=== PATIENT | female | born 1995 | race Caucasian/White ===

== ENCOUNTER 2016-05-27 20:05 | Emergency (ER) | payer OTHER ==
--- NOTE | 2016-05-27 20:10 | PDOC ---
History of Present Illness - General History Source: Patient Exam Limitations: No Limitations - History of Present Illness Initial Comments: 05/27/16 20:16 The patient is a 21 year old female, with no significant past medical history, who presents today with a left ankle injury. The patient states that she was rock climbing when she bent her left foot the wrong way. She reports pain and some swelling to left ankle. Denies falling, head trauma, any other trauma. Denies lightheadedness, dizziness. Allergies: none reported ROS General: No fevers or chills, no weakness, no weight loss HEENT: No change in vision. No sore throat,. No ear pain CardioVascular: No chest pain or shortness of breath Respiratory:No cough, or wheezing. Gastrointestinal: no nausea, vomiting, diarrhea or constipation, No rectal bleeding Genitourinary: No dysuria, hematuria, or frequency Musculoskeletal: +left ankle pain. No joint or muscle pain or swelling Neurologic: No headache, vertigo, dizziness or loss of consciousness Psychiatric: nor depression Skin: No rashes or easy bruising Endocrine: no increased thirst or abnormal weight change Allergic: no skin or latex allergy All other systems reviewed and normal PE GENERAL: The patient is awake, alert, and fully oriented, in no acute distress. HEAD: Normal with no signs of trauma. EYES: Pupils equal, round and reactive to light, extraocular movements intact, sclera anicteric, conjunctiva clear. EXTREMITIES: Left ankle: +tenderness and swelling over thelateral malleolus. No tenderness on palpation of the bones of the foot, specifically over the metatarsal. Neurovascular intact. NEUROLOGICAL: Normal speech, normal gait. PSYCH: Normal mood, normal affect. SKIN: Warm, Dry, normal turgor, no rashes or lesions noted. <Maria Ramirez - Last Filed: 05/27/16 20:25> - General History Source: Patient Exam Limitations: No Limitations - History of Present Illness Initial Comments: 05/27/16 21:08 A portion of this note was documented by scribe services under my direction. I have reviewed the details of the note, within reason, and agree with the documentation. The case summary and management plan written by me. X-ray left ankle Questionable small chip fracture of talus Procedure splint application OCL Posterior ankle splint applied by Chris neurovascular exam post splint application was normal Assessment and plan: This is a 21-year-old female who injured her left ankle while climbing on a climbing wall. Patient shows what I think is a questionable small chip fracture of the talus Patient was put in a posterior ankle splint and given crutches and made no weight bearing until she sees an orthopedist Patient given referral to an orthopedist Dr. Belle Patient discharged home <Cornelius Vanegas I - Last Filed: 05/27/16 21:11> - General Chief Complaint: Injury Stated Complaint: INJURY TO LEFT ANKLE Time Seen by Provider: 05/27/16 20:08 Past History <Maria Ramirez - Last Filed: 05/27/16 20:25> <Cornelius Vanegas I - Last Filed: 05/27/16 21:11> - Past Medical History Allergies/Adverse Reactions: Allergies Allergy/AdvReac Type Severity Reaction Status Date / Time No Known Allergies Allergy Verified 05/27/16 20:07 Home Medications: Ambulatory Orders NK [No Known Home Medication] 05/27/16 *Physical Exam - Vital Signs Last Vital Signs Temp Pulse Resp BP Pulse Ox 97.6 F 65 16 104/72 98 05/27/16 20:08 05/27/16 20:08 05/27/16 20:08 05/27/16 20:08 05/27/16 20:08 <Maria Ramirez - Last Filed: 05/27/16 20:25> *DC/Admit/Observation/Transfer - Attestations Scribe Attestion: 05/27/16 20:25 Documentation prepared by MELQUIADES Farrell, acting as medical driver for Cornelius Vanegas MD. <Maria Ramirez - Last Filed: 05/27/16 20:25> - Discharge Dispostion Admit: No <Cornelius Vanegas I - Last Filed: 05/27/16 21:11> Diagnosis at time of Disposition: Fracture of left ankle Qualifiers: Encounter type: initial encounter Fracture type: closed Qualified Code(s): S82.892A - Other fracture of left lower leg, initial encounter for closed fracture - Discharge Dispostion Disposition: HOME Condition at time of disposition: Stable - Patient Instructions Additional Instructions: Tylenol or Motrin as needed for pain. Leave the splint on and use crutches for walking until you see an orthopedist. If he needed an orthopedist to follow-up with call Dr. Belle at [phone] for an appointment. Return to the emergency department immediately with ANY new, persistent or worsening symptoms. Continue any medications as previously prescribed by your physician. You should follow up with your primary doctor as soon as possible regarding today's emergency department visit. . Please make sure your doctor reviews the results of your emergency evaluation. Thank you for coming to the Emergency Department today for your care. It was a pleasure to see you today. Please note that your evaluation is INCOMPLETE until you follow-up with your doctor.
[2016-05-27 20:12] VITALS: BP 104/72; PULSE 65; TEMP 97.6; BMI 22.6
== END 2016-05-27 21:19 | disposition home or self-care (01) ==
LOC: FER 20:05
PROC: 2W3TX1Z Immobilization of Left Foot using Splint (ICD-10-PCS; principal; 2016-05-27)
DX: S82.892A Other fracture of left lower leg, initial encounter for closed fracture (principal); X58.XXXA Exposure to other specified factors, initial encounter; Y93.31 Activity, mountain climbing, rock climbing and wall climbing; Y92.9 Unspecified place or not applicable
CPT/HCPCS: 73610-TC-LT; 84703; 99281-25

== ENCOUNTER 2019-04-19 14:50 | Emergency (ER) | payer OTHER ==
[2019-04-19 15:08] VITALS: BP 119/56; PULSE 86; TEMP 97.5; BMI 23.2
--- NOTE | 2019-04-19 16:12 | PDOC ---
Documentation entered by Tasha Garrison SCRIBE, acting as scribe for Suresh Torrez MD. Suresh Torrez MD: This documentation has been prepared by the indigoibeBladimir Maria, SCRIBE, under my direction and personally reviewed by me in its entirety. I confirm that the documentation accurately reflects all work, treatment, procedures, and medical decision making performed by me. History of Present Illness - General Chief Complaint: Injury Stated Complaint: RT ANKLE INJURY Time Seen by Provider: 04/19/19 14:59 - History of Present Illness Initial Comments: 04/19/19 15:27 Patient is a 23 year old female with no significant past medical history who presents to the emergency department with a right ankle injury. Patient states she inverted her ankle at 1am last night. Patient states she begin icing and took pain medication without any relief of pain. As per patient she noticed the swelling and redness began to worsen prompting her to the ER. Patient denies falling or head trauma. Allergies: NKA Past surgical history: None reported. Past History - Past Medical History Allergies/Adverse Reactions: Allergies Allergy/AdvReac Type Severity Reaction Status Date / Time No Known Allergies Allergy Verified 04/19/19 14:55 Home Medications: Ambulatory Orders Naproxen [Naprosyn -] 375 mg PO BID PRN #14 tablet 04/19/19 COPD: No Other medical history: eczema - Psycho Social/Smoking Cessation Hx Smoking History: Never smoked Have you smoked in the past 12 months: No Information on smoking cessation initiated: No Hx Alcohol Use: No Drug/Substance Use Hx: No Substance Use Type: None Review of Systems - Review of Systems Comments:: 04/19/19 15:27 CONSTITUTIONAL: Absent: Fever, Chills, Diaphoresis, Generalized Weakness, Malaise, Loss of Appetite HEENT: Absent: Rhinorrhea, Nasal Congestion, Throat Pain, Throat Swelling, Difficulty Swallowing, Mouth Swelling, Ear Pain, Eye Pain, Visual Changes CARDIOVASCULAR: Absent: Chest Pain, Syncope, Palpitations, Irregular Heart Rate, Lightheadedness , Peripheral Edema RESPIRATORY: Absent: Cough, Shortness of Breath, SOB with Exertion, Orthopnea, Wheezing, Stridor, Hemoptysis GASTROINTESTINAL: Absent: Abdominal pain, Abdominal Distension, Nausea, Vomiting, Diarrhea, Constipation, Melena, Hematochezia GENITOURINARY: Absent: Dysuria, Frequency, Urgency, Hesitancy, Flank Pain, Genital Pain MUSCULOSKELETAL:+right ankle injury Absent: Myalgia, Arthralgia, Joint Swelling, Back pain, Neck Pain SKIN: Absent: Rash, Itching, Pallor HEMEATOLOGIC/IMMUNOLOGIC: Absent: Easy Bleeding, Easy Bruising, Lymphadenopathy, Frequent infections ENDOCRINE: Absent: Unexplained Weight Gain, Unexplained Weight Loss, Heat Intolerance, Cold Intolerance NEUROLOGIC: Absent: Headache, Focal Weakness, Paresthesias, Vertigo, Lightheadedness, Unsteady Gait, Seizure, Mental Status Changes, Incontinence PSYCHIATRIC: Absent: Anxiety, Depression *Physical Exam - Vital Signs Last Vital Signs Temp Pulse Resp BP Pulse Ox 97.5 F L 86 18 119/56 L 100 04/19/19 14:50 04/19/19 14:50 04/19/19 14:50 04/19/19 14:50 04/19/19 14:50 - Physical Exam 04/19/19 16:06 GENERAL: The patient is awake, alert, and fully oriented, in no acute distress. She is ambulating with crutches. HEAD: Normal with no signs of trauma. EYES: Pupils equal, round and reactive to light, extraocular movements intact, sclera anicteric, conjunctiva clear. EXTREMITIES: The right ankle has no tenderness above the level of the ankle. There is significant swelling over the lateral malleolus. There is tenderness over the anterior aspect of the lateral malleolus distally. There is no medial malleolar tenderness. There is no tenderness over the proximal fifth metatarsal. Skin is intact. Neurovascular examination is intact. Sensation in the distal foot is normal. Pulses to the dorsalis pedis are normal. Capillary refill is normal. NEUROLOGICAL: Normal speech, walking with crutches. PSYCH: Normal mood, normal affect. SKIN: Warm, Dry, normal turgor, no rashes or lesions noted. ED Treatment Course - RADIOLOGY Radiology Studies Ordered: Category Date Time Status ANKLE-RIGHT [RAD] Stat Radiology 04/19/19 15:19 Taken Medical Decision Making - Medical Decision Making 04/19/19 16:07 23-year-old female is status post twisting her ankle last night at 1 AM. She comes in on crutches due to inability to bear weight. On examination there is swelling and tenderness over the anterior aspect of the lateral malleolus. Neurovascular examination and skin are all intact. 3 views of the right ankle demonstrate no fracture or dislocation. This is based upon my preliminary review with final radiology reading pending at the time of discharge. Radiology follow-up procedure activated. Impression: Right ankle sprain Plan: Ruben wrap Crutches Ice packs and elevation Naprosyn as needed for pain Orthopedic follow-up Discharge - Discharge Information Problems reviewed: Yes Clinical Impression/Diagnosis: Right ankle sprain Qualifiers: Encounter type: initial encounter Involved ligament of ankle: anterior talofibular ligament Qualified Code(s): S93.491A - Sprain of other ligament of right ankle, initial encounter Condition: Stable Disposition: HOME - Admission No - Additional Discharge Information Prescriptions: Naproxen [Naprosyn -] 375 mg PO BID PRN #14 tablet PRN Reason: Pain - Follow up/Referral - Patient Discharge Instructions Patient Printed Discharge Instructions: DI for Ankle Sprain Additional Instructions: Today you were evaluated for a right ankle sprain. The x-ray shows no fracture or dislocation. The diagnosis is a sprain of the right ankle. Use an Ruben wrap when up for support, remove it at night. Elevate the ankle to reduce swelling and pain. Apply ice packs for 20 to 30 minutes every few hours over the next 2 days. Use crutches for walking as needed. You may bear weight once the pain begins to improve. Be careful to advance your activity slowly or you may reinjure the ankle. Follow-up with orthopedics if the symptoms are not improving after 1 week. Return to the emergency department for any severe or progressive symptoms. - Post Discharge Activity
== END 2019-04-19 16:18 | disposition home or self-care (01) ==
LOC: FER 14:50
DX: S93.491A Sprain of other ligament of right ankle, initial encounter (principal); X58.XXXA Exposure to other specified factors, initial encounter; Y93.89 Activity, other specified; Y92.89 Other specified places as the place of occurrence of the external cause
CPT/HCPCS: 73610-TC-RT-FY; 99283-25

== ENCOUNTER 2020-02-08 11:45 | Emergency (ER) | payer OTHER ==
[2020-02-08 12:22] VITALS: BP 108/67; PULSE 67; TEMP 99.5; BMI 21.7
--- OUTSIDE RECORDS SUMMARY | 2020-02-08 12:49 | XMS ---
:1995 Author Organization [facility] Care Team Providers Name Role Phone [id number] Unavailable Unavailable BREANNE Unavailable Unavailable MD TANIYA Unavailable Unavailable MD Samson Unavailable Unavailable MD Penny Unavailable Unavailable ELIZABETH Unavailable Unavailable JABARI MCKENZIE Unavailable Unavailable Ruel Brumfield MD Unavailable Unavailable Ruel Brumfield MD Unavailable Unavailable Ruel Brumfield MD Unavailable Unavailable Ruel Brumfield MD Unavailable Unavailable Tej, Unavailable Unavailable Re-disclosure Warning The records that you are about to access may contain information from federally- assisted alcohol or drug abuse programs. If such information is present, then the following federally mandated warning applies: This information has been disclosed to you from records protected by federal confidentiality rules (42 CFR part 2). The federal rules prohibit you from making any further disclosure of this information unless further disclosure is expressly permitted by the written consent of the person to whom it pertains or as otherwise permitted by 42 CFR part 2. A general authorization for the release of medical or other information is NOT sufficient for this purpose. The Federal rules restrict any use of the information to criminally investigate or prosecute any alcohol or drug abuse patient.The records that you are about to access may contain highly sensitive health information, the redisclosure of which is protected by Article 27-F of the [facility] Public Health law. If you continue you may haveaccess to information: Regarding HIV / AIDS; Provided by facilities licensed or operated by the [facility] Office of Mental Health; or Provided by the [facility] Office for People With Developmental Disabilities. If such information is present, then the following [facility] mandated warning applies: This information has been disclosed to you from confidential records which are protected by state law. State law prohibits you from making any further disclosure of this information without the specific written consent of the person to whom it pertains, or as otherwise permitted by law. Any unauthorized further disclosure in violation of state law may result in a fine or longterm sentence or both. A general authorization for the release of medical or other information is NOT sufficient authorization for further disclosure. 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 Emergency Attender: Usha 11/13/2019 04:42:00 VAG BLEED A UTO [place] Tej DO EDT - 11/13/2019 [facility] 06:59:00 AM EDT VAG BLEED AUTO Patient discharged. Outpatient Attender: BREANNEAdmitter: 08/27/2019 04:30:00 Z03. 818 [facility] Z03.818 Outpatient Attender: MAGALY 08/14/2019 02:26:00 Z03.818 [facility] JABARI SalasAdmitter: [facility] JABARI MCKENZIE [employer] Z03.818 Outpatient Attender: Nayana 04/02/2019 11:11:00 [place]ICIA PAREDES [place] [facility] PPD READING Outpatient Attender: Nayana 03/31/2019 10:11:00 AM F/U [facility] Samson SECALERA F/U 01/06/2019 01:43:00 PM [facility] EDT P Attender: Nayana 01/05/2019 11:34:00 AM [facility] Samson TAVAREZ EDT Outpatient Attender: Nayana 01/05/2019 10:16:00 AM [facility] Samson TAVAREZ EDT NEW Attender: [id number] 2018 09:16:00 [facility] [id number] EDT Hospital P Attender: Vijay Brum[facility] MD 10[facility]11[facility]2018 [facility] Attender: SHRUTHI MAYS 09/14/2018 09:16:00 [facility] SAQIAdmitter: OWEN JOHNSON EDT Hospital Outpatient Attender: Vijay Brumfield 09/10/2018 12:14:00 E JACKIE Ospina MD EDT - 10/10/2018 [facility] 12:01:00 AM EDT EVAL Patient discharged. Outpatient Attender: Vijay 08/11/2018 10:39:00 AM [facility] Octaviano TAVAREZ EDT - 09/09/2018 12:01:00 AM EDT EVAL Outpatient Attender: Vijay 07/11/2018 03:14:00 PM [facility] Octaviano TAVAREZ EST - 08/10/2018 12:01:00 AM EDT EVAL Outpatient Attender: Vijay 06/13/2018 10:20:00 AM [facility] Octav[facility] TAVAREZ EST - 07/10/2018 12:01:00 AM EST EVAL Medications Medication Brand Start Product Dose Route Administrative Pharmacy St at Indications Reaction Description Data Name Date Form Instructions Instructions Source(s) 24 HR Addera ORAL complet Adderall XR [facility] Amphetamine ll XR 2019 Capsu ed - 25 MG ORA [facility] aspartate - 25 12:00: le Capsule, Hosp ital 6.25 MG / MG 00 AM Extended Amphetamine ORAL EDT Release Sulfate Capsul 6.25 MG / e, Dextroamphe Extend tamine ed saccharate Releas 6.25 MG / e Dextroamphe tamine Sulfate 6.25 MG Extended Release Oral Capsule [Adderall] 24 HR Addera ORAL complet Adderall XR [facility] XR 2020 Capsu ed - 20 MG ORA [facility] aspartate 5 - 20 12:00: le Capsule, Ho spital MG / MG 00 AM Extended Amphetamine ORAL EDT Release Sulfate 5 Capsul MG / e, Dextroamphe Extend tamine ed saccharate Releas 5 MG / e Dextroamphe tamine Sulfate 5 MG Extended Release Oral Capsule [Adderall] 24 HR Addera ORAL complet Adderall XR [facility] XR 2020 Capsu ed - 20 MG ORA L [facility] aspartate 5 - 20 12:00: le Capsule, Ho spital MG / MG 00 AM Extended Amphetamine ORAL EDT Release Sulfate 5 Capsul MG / e, Dextroamphe Extend tamine ed saccharate Releas 5 MG / e Dextroamphe tamine Sulfate 5 MG Extended Release Oral Capsule [Adderall] 24 HR Addera ORAL complet Adderall XR [facility] XR 2020 Capsu ed - 20 MG ORA [facility] aspartate 5 - 20 12:00: le Capsule, Ho spital MG / MG 00 AM Extended Amphetamine ORAL EDT Release Sulfate 5 Capsul MG / e, Dextroamphe Extend tamine ed saccharate Releas 5 MG / e Dextroamphe tamine Sulfate 5 MG Extended Release Oral Capsule [Adderall] 24 HR Addera ORAL complet Adderall XR [facility] XR 2020 Capsu ed - 20 MG ORA L [facility] aspartate 5 - 20 12:00: le Capsule, Ho spital MG / MG 00 AM Extended Amphetamine ORAL EDT Release Sulfate 5 Capsul MG / e, Dextroamphe Extend tamine ed saccharate Releas 5 MG / e Dextroamphe tamine Sulfate 5 MG Extended Release Oral Capsule [Adderall] 24 HR Addera ORAL complet Adderall XR [facility]mp[facility] XR 2020 Capsu ed - 20 MG ORA L [facility] aspartate 5 - 20 12:00: le Capsule, Ho spital MG / MG 00 AM Extended Amphetamine ORAL EDT Release Sulfate 5 Capsul MG / e, Dextroamphe Extend tamine ed saccharate Releas 5 MG / e Dextroamphe tamine Sulfate 5 MG Extended Release Oral Capsule [Adderall] 24 HR Addera ORAL complet Adderall XR [facility]mp[facility] XR 2019 Capsu ed - 20 MG ORA [facility] aspartate 5 - 20 12:00: le Capsule, Ho spital MG / MG 00 AM Extended Amphetamine ORAL EST Release Sulfate 5 Capsul MG / e, Dextroamphe Extend tamine ed saccharate Releas 5 MG / e Dextroamphe tamine Sulfate 5 MG Extended Release Oral Capsule [Adderall] 24 HR Addera ORAL complet Adderall XR [facility] XR 2019 Capsu ed - 20 MG ORA L [facility] aspartate 5 - 20 12:00: le Capsule, Ho spital MG / MG 00 AM Extended Amphetamine ORAL EST Release Sulfate 5 Capsul MG / e, Dextroamphe Extend tamine ed saccharate Releas 5 MG / e Dextroamphe tamine Sulfate 5 MG Extended Release Oral Capsule [Adderall] 24 HR Addera ORAL complet Adderall XR [facility] XR 2019 Capsu ed - 20 MG ORA L [facility] aspartate 5 - 20 12:00: le Capsule, Ho spital MG / MG 00 AM Extended Amphetamine ORAL EST Release Sulfate 5 Capsul MG / e, Dextroamphe Extend tamine ed saccharate Releas 5 MG / e Dextroamphe tamine Sulfate 5 MG Extended Release Oral Capsule [Adderall] 24 HR Addera ORAL complet Adderall XR [facility]mp[facility] ll XR 2018 Capsu ed - 20 MG ORA L [facility] aspartate 5 - 20 12:00: le Capsule, Ho spital MG / MG 00 AM Extended Amphetamine ORAL EST Release Sulfate 5 Capsul MG / e, Dextroamphe Extend tamine ed saccharate Releas 5 MG / e Dextroamphe tamine Sulfate 5 MG Extended Release Oral Capsule [Adderall] 24 HR Addera ORAL complet Adderall XR [facility] XR 2018 Capsu ed - 20 MG ORA L [facility] aspartate 5 - 20 12:00: le Capsule, Ho spital MG / MG 00 AM Extended Amphetamine ORAL EST Release Sulfate 5 Capsul MG / e, Dextroamphe Extend tamine ed saccharate Releas 5 MG / e Dextroamphe tamine Sulfate 5 MG Extended Release Oral Capsule [Adderall] 24 HR Addera ORAL complet Adderall XR [facility] XR 2018 Capsu ed - 20 MG ORA L [facility] aspartate 5 - 20 12:00: le Capsule, Ho spital MG / MG 00 AM Extended Amphetamine ORAL EST Release Sulfate 5 Capsul MG / e, Dextroamphe Extend tamine ed saccharate Releas 5 MG / e Dextroamphe tamine Sulfate 5 MG Extended Release Oral Capsule [Adderall] 24 HR Addera ORAL complet Adderall XR [facility] XR 2018 Capsu ed - 20 MG ORA L [facility] aspartate 5 - 20 12:00: le Capsule, Ho spital MG / MG 00 AM Extended Amphetamine ORAL EDT Release Sulfate 5 Capsul MG / e, Dextroamphe Extend tamine ed saccharate Releas 5 MG / e Dextroamphe tamine Sulfate 5 MG Extended Release Oral Capsule [Adderall] 24 HR Addera ORAL complet Adderall XR [facility]mp[facility] ll XR 2018 Capsu ed - 20 MG ORA L [facility] aspartate 5 - 20 12:00: le Capsule, Ho spital MG / MG 00 AM Extended Amphetamine ORAL EDT Release Sulfate 5 Capsul MG / e, Dextroamphe Extend tamine ed saccharate Releas 5 MG / e Dextroamphe tamine Sulfate 5 MG Extended Release Oral Capsule [Adderall] 24 HR Addera ORAL complet Adderall XR [facility]mphetamine [facility] XR 2018 Capsu ed - 10 MG ORA L [facility] aspartate - 10 12:00: le Capsule, Hosp ital 2.5 MG / MG 00 AM Extended Amphetamine ORAL EDT Release Sulfate 2.5 Capsul MG / e, Dextroamphe Extend tamine ed saccharate Releas 2.5 MG / e Dextroamphe tamine Sulfate 2.5 MG Extended Release Oral Capsule [Adderall] Amphetamine Addera ORAL complet Addera ll - 5 [facility] aspartate ll - 5 2018 Table ed MG ORAL [facility] 1.25 MG / MG 12:00: t Tablet Hospit al Amphetamine ORAL 00 AM Sulfate Tablet EDT 1.25 MG / Dextroamphe tamine saccharate 1.25 MG / Dextroamphe tamine Sulfate 1.25 MG Oral Tablet [Adderall] 24 HR Concer ORAL complet Concerta - S aint Methylpheni - 2018 Table ed 18 MG ORAL [facility] date 18 MG 12:00: t Tablet, Hospital Hydrochlori ORAL 00 AM Extended de 18 MG Tablet EDT Release Extended , Release Extend Oral Tablet ed [Concerta] Releas e Methylpheni Ritali ORAL complet Ritali n - 10 2018 Table ed MG ORAL [facility] Hydrochlori MG 12:00: t Tablet Hosp ital de 10 MG ORAL 00 AM Oral Tablet Tablet EDT [Ritalin] Methylpheni Ritali ORAL complet Ritali n - 10 2018 Table ed MG ORAL [facility] Hydrochlori MG 12:00: t Tablet Hosp ital de 10 MG ORAL 00 AM Oral Tablet Tablet EDT [Ritalin] No known complet [facility] [place] [facility] No known complet [facility] [place] [facility] No known complet [facility] [place] [facility] Insurance Providers Payer name Policy type Policy ID Covered Covered green party's Policy P emery / Coverage green party ID relationship to [facility] ormation type wright SOLEDAD [id number] PT [id number] ESSENTIAL PLAN 1 [employer] [id number] PT [id number] MEDICAID [id number] PT [id number] COMMERCIAL [id number] UN [id number] OTHER 1 BETTER [id number] UN [id number] HEALTH/SHEELA [facility]ELA HEALTH [id number] SP [id number] NON CAP SHEELA [id number] SP [id number] ESSENTIAL PLAN 1 2 SHEELA [id number] SP [id number] ESSENTIAL PLAN 1 2 [facility]A HEALTH [id number] SP [id number] NON CAP SHEELA HEALTH [id number] SP [id number] NON CAP EP SHEELA [id number] Self [id number] ESSENTIAL PLAN SELF PAY 000 Self 000 EP AFFINITY [id number] Self [id number] [facility] 2 SHEELA [id number] PT [id number] MEDICAID SELF PAY 000 Self 000 [place] SELF PAY 000 Self 000 SELF PAY INSURANCE Problems, Conditions, and Diagnoses Code Display Name Description Problem Type Effective Data Sour ce(s) Dates N93.0 Postcoital and N93.0 Diagnosis 11/13/2019 [facility] contact bleeding 05:22:00 AM Hospita l EDT Z03.818 Encounter for ENCNTR FOR OBS Diagnosis 08/27/2019 [facility] observation for FOR SUSP EXPSR 04:30:00 PM [facility] suspected exposure TO OTH BIOLG EDT Care to other biological AGENTS RULED OUT Corporation agents ruled out Z09 Encounter for Z09 Diagnosis 04/02/2019 [facility] follow-up 11:11:00 AM Hospital examination after EST completed treatment for conditions other than malignant neoplasm Z23 Encounter for Z23 Diagnosis 03/31/2019 [facility] immunization 10:11:00 AM Hospital EST Z11.1 Encounter for Z11.1 Diagnosis 03/31/2019 [facility] screening for 10:11:00 AM Hospital respiratory EST tuberculosis L30.9 Dermatitis, L30.9 Diagnosis 03/31/2019 [place] unspecified 10:11:00 AM Hospital EST E78.49 E78.49 E78.49 Diagnosis 03/31/2019 [place] 10:11:00 AM Hospital EST Z02.89 Encounter for other Z02.89 Diagnosis 03/31/2019 [place] administrative 10:11:00 AM Hospital examinations EST Z13.228 Encounter for Z13.228 Diagnosis 01/05/2019 [facility] screening for other 10:16:00 AM Hosp ital metabolic disorders EDT R53.83 Other fatigue R53.83 Diagnosis 01/05/2019 [facility] 10:16:00 AM Hospital EDT Z00.00 Encounter for Z00.00 Diagnosis 01/05/2019 [facility] general adult 10:16:00 AM Hospital medical examination EDT without abnormal findings F32.9 Major depressive F32.9 Diagnosis 10/11/2018 [facility] ains disorder, single 12:00:00 AM Hospita l episode, EDT unspecified Surgeries/Procedures Procedure Description Date Indications Data Source(s) Transvaginal echography 11/13/2019 [facility] (procedure) 12:00:00 AM EDT Emergency dept visit 11/13/2019 [facility] 12:00:00 AM EDT Transvaginal echography 11/13/2019 [facility] (procedure) 12:00:00 AM EDT Results ID Date Data Source [id number] 11/18/2019 10:50:00 AM EDT [place] [facility] Name Value Range Interpretation Code Description Data Supporting Source(s) Document(s ) PATIENT ID # ENTERED [facility] ID Date Data Source [id number] 11/13/2019 05:46:00 AM EDT [facility] Value Range Interpretation Description Data Sup porting Code Source(s) Document(s ) Choriogonadotropin NEGATIVE [facility] ( test) [place] [Presence] in Urine Hospital ID Date Data Source [id number] 11/13/2019 05:46:00 AM EDT [facility] Name Value Range Interpretation Description Data Sup porting Code Source(s) Document(s ) Choriogonadotropin NEGATIVE [facility] ( test) [place] [Presence] in Urine Hospital ID Date Data Source [id number] 11/13/2019 04:58:00 AM EDT [facility] Value Range Interpretation Description Data Sup porting Code Source(s) Document(s ) Aspartate 19 U/L [facility] aminotransferase [place] [Enzymatic Hospital activity/volume] in Serum or Plasma ID Date Data Source [id number] 11/13/2019 04:58:[address] [facility] Name Value Range Interpretation Description Data Sup porting Code Source(s) Document(s ) Alanine 19 U/L [facility] aminotransferase [place] [Enzymatic Hospital activity/volume] in Serum or Plasma ID Date Data Source [id number] 11/13/2019 04:58:00 AM [facility] Value Range Interpretation Description Data Sup porting Code Source(s) Document(s ) Alkaline 79 U/L [facility] [Enzymatic activity/volume ] in Serum or Plasma ID Date Data Source [id number] 11/13/2019 04:58:[address] [facility] Name Value Range Interpretation Description Data Sup porting Code Source(s) Document(s ) Bilirubin.t 0.3 mg/dL [facility] [Mass/volum e] in Serum or Plasma ID Date Data Source [id number] 11/13/2019 04:58:00 AM EDT [facility] Name Value Range Interpretation Code Description Data Gabby rce(s) Supporting Document(s ) Albumin/Glob 2.1 [place] ulin [Mass Hospital Ratio] in Serum or Plasma ID Date Data Source [id number] 11/13/2019 04:58:00 AM EDT [facility] Name Value Range Interpretation Description Data Sup porting Code Source(s) Document(s ) Albumin 4.6 g/dL [place] [Mass/volume Hospital ] in Serum or Plasma ID Date Data Source [id number] 11/13/2019 04:58:00 AM EDT [facility] Name Value Range Interpretation Description Data Sup porting Code Source(s) Document(s ) Protein 6.8 g/dL [place] [Mass/volume Hospital ] in Serum or Plasma ID Date Data Source [id number] 11/13/2019 04:58:00 AM EDT [facility] Name Value Range Interpretation Description Data Sup porting Code Source(s) Document(s ) Calcium 9.3 mg/dL [place] [Mass/volume Hospital ] in Serum or Plasma ID Date Data Source [id number] 11/13/2019 04:58:00 AM EDT [facility] Name Value Range Interpretation Code Description Data Gabby rce(s) Supporting Document(s ) Urea 21.4 [place] nitrogen/Cre Hospital atinine [Mass Ratio] in Serum or Plasma ID Date Data Source [id number] 11/13/2019 04:58:00 AM EDT [facility] Name Value Range Interpretation Description Data Sup porting Code Source(s) Document(s ) Creatinine 0.7 mg/dL [place] [Mass/volume] Hospital in Serum or Plasma ID Date Data Source [id number] 11/13/2019 04:58:00 AM EDT [facility] Name Value Range Interpretation Description Data Sup porting Code Source(s) Document(s ) Urea 15 mg/dL [place] nitrogen Hospital [Mass/volume ] in Serum or Plasma ID Date Data Source [id number] 11/13/2019 04:58:00 AM EDT [facility] Name Value Range Interpretation Code Description Data Gabby rce(s) Supporting Document(s ) Anion gap in 9 [place] Serum or [facility] Plasma ID Date Data Source [id number] 11/13/2019 04:58:00 AM EDT [facility] Name Value Range Interpretation Description Data Sup porting Code Source(s) Document(s ) Carbon 29 mmol/L [place] dioxide, Hospital total [Moles/volu me] in Serum or Plasma ID Date Data Source [id number] 11/13/2019 04:58:00 AM EDT [facility] Name Value Range Interpretation Description Data Sup porting Code Source(s) Document(s ) Chloride 103 [place] [Moles/volum mmol/L Hospital e] in Serum or Plasma ID Date Data Source [id number] 11/13/2019 04:58:00 AM EDT [facility] Name Value Range Interpretation Description Data Sup porting Code Source(s) Document(s ) Potassium 4.3 [place] [Moles/volume mmol/L Hospital ] in Serum or Plasma ID Date Data Source [id number] 11/13/2019 04:58:00 AM EDT [facility] Name Value Range Interpretation Description Data Sup porting Code Source(s) Document(s ) Sodium 137 mmol/L [place] [Moles/volu Hospital me] in Serum or Plasma ID Date Data Source [id number] 11/13/2019 04:58:00 AM EDT [facility] Name Value Range Interpretation Description Data Sup porting Code Source(s) Document(s ) Glucose 92 mg/dL [place] [Mass/volume Hospital ] in Serum or Plasma ID Date Data Source [id number] 11/13/2019 04:58:00 AM EDT [facility] Name Value Range Interpretation Description Data Sup porting Code Source(s) Document(s ) Epithelial 1+ [place] cells.squamous Hospital [#/area] in Urine sediment by Microscopy high power field ID Date Data Source [id number] 11/13/2019 04:58:00 AM EDT [facility] Name Value Range Interpretation Description Data Sup porting Code Source(s) Document(s ) Bacteria OCCASIONAL [place] [#/area] in Hospital Urine sediment by Microscopy high power field ID Date Data Source [id number] 11/13/2019 04:58:00 AM EDT [facility] Name Value Range Interpretation Description Data Sup porting Code Source(s) Document(s ) Erythrocytes 0-3 [place] [#/area] in /[HPF] Hospital Urine sediment by Microscopy high power field ID Date Data Source [id number] 11/13/2019 04:58:00 AM EDT [facility] Name Value Range Interpretation Description Data Sup porting Code Source(s) Document(s ) Leukocytes 3-5 [place] [#/area] in /[HPF] Hospital Urine sediment by Microscopy high power field ID Date Data Source [id number] 11/13/2019 04:58:00 AM EDT [facility] Name Value Range Interpretation Code Description Data Supporting Source(s) Document(s ) Leukocyte TRACE [place] esterase Hospital [Presence] in Urine by Test strip ID Date Data Source [id number] 11/13/2019 04:58:00 AM EDT [facility] Name Value Range Interpretation Description Data Sup porting Code Source(s) Document(s ) URINE NEGATIVE [place] NITRITES Hospital ID Date Data Source [id number] 11/13/2019 04:58:00 AM EDT [facility] Name Value Range Interpretation Description Data Sup porting Code Source(s) Document(s ) Erythrocytes 3+ [place] [#/volume] in Hospital Urine by Test strip ID Date Data Source [id number] 11/13/2019 04:58:00 AM EDT [facility] Name Value Range Interpretation Code Description Data Gabby rce(s) Supporting Document(s ) Bilirubin. NEGATIVE [place] total Hospital [Presence] in Urine by Test strip ID Date Data Source [id number] 11/13/2019 04:58:00 AM EDT [facility] Name Value Range Interpretation Description Data Sup porting Code Source(s) Document(s ) Urobilinogen 0.2 [place] [Units/volume] mg/dL Hospital in Urine by Test strip ID Date Data Source [id number] 11/13/2019 04:58:00 AM EDT [facility] Value Range Interpretation Code Description Data Gabby rce(s) Supporting Document(s ) Ketones TRACE [place] [Mass/volume Hospital ] in Urine by Test strip ID Date Data Source [id number] 11/13/2019 04:58:00 AM EDT [facility] Name Value Range Interpretation Description Data Sup porting Code Source(s) Document(s ) Glucose NEGATIVE [place] [Mass/volume Hospital ] in Urine by Test strip ID Date Data Source [id number] 11/13/2019 04:58:00 AM EDT [facility] Name Value Range Interpretation Code Description Data Gabby rce(s) Supporting Document(s ) Protein 1+ [place] [Presence] Hospital in Urine by Test strip ID Date Data Source [id number] 11/13/2019 04:58:[address] [facility] Name Value Range Interpretation Code Description Data Gabby rce(s) Supporting Document(s ) pH of Urine 5.5 [place] by Test Hospital strip ID Date Data Source [id number] 11/13/2019 04:58:[address] [facility] Name Value Range Interpretation Code Description Data Supporting Source(s) Document(s ) Specific 1.035 [place] gravity of Hospital Urine by Test strip ID Date Data Source [id number] 11/13/2019 04:58:[address] [facility] Name Value Range Interpretation Description Data Sup porting Code Source(s) Document(s ) Clarity in Urine CLOUDY [place] by Refractometry [facility] automated ID Date Data Source [id number] 11/13/2019 04:58:[address] [facility] Name Value Range Interpretation Code Description Data Gabby rce(s) Supporting Document(s ) Color of YELLOW [place] Urine Hospital ID Date Data Source [id number] 11/13/2019 04:58:[address] [facility] THERAPEUTIC RANGES:UNFRACTIONATED HEPARI N THERAPY: 60-90 SECONDSARGATROBAN THERAPY: 49-99 SECONDS Name Value Range Interpretation Description Data Sup porting Code Source(s) Document(s ) aPTT in 32.3 s [place] Platelet poor [facility] plasma by Coagulation assay ID Date Data Source [id number] 11/13/2019 04:58:[address] [facility] THERAPEUTIC RANGE FOR STANDARD ORALANTIC OAGULANT THERAPY: 2.0-3.0THERAPEUTIC RANGE FOR HIGH DOSE ORALANTICOAGULANT THERAPY (MECHANICAL HEARTVALVE REPLACEMENT): 2.5-3.5 Name Value Range Interpretation Description Data Sup porting Code Source(s) Document(s ) INR in Platelet 0.9 [place] poor plasma by Hospital Coagulation assay ID Date Data Source [id number] 11/13/2019 04:58:00 AM EDT [facility] Name Value Range Interpretation Description Data Sup porting Code Source(s) Document(s ) PT panel - 10.9 s [place] Platelet poor Hospital plasma by Coagulation assay ID Date Data Source [id number] 11/13/2019 04:58:00 AM EDT [facility] Value Range Interpretation Code Description Data Supporting Source(s) Document(s ) NUCLEATED RBCS 0.0 % [place] (AUTO Hospital DIFF%)DIS ID Date Data Source [id number] 11/13/2019 04:58:00 AM EDT [facility] Value Range Interpretation Description Data Sup porting Code Source(s) Document(s ) Differential AUTOMATED [place] cell count [facility] method - Blood ID Date Data Source [id number] 11/13/2019 04:58:00 AM EDT [facility] Value Range Interpretation Description Data Sup porting Code Source(s) Document(s ) Immature 0.01 [place] granulocytes 10*3/uL Hospital [#/volume] in Blood by Automated count ID Date Data Source [id number] 11/13/2019 04:58:00 AM EDT [facility] Name Value Range Interpretation Description Data Sup porting Code Source(s) Document(s ) Basophils 0.04 [place] [#/volume] in 10*3/uL Hospital Blood by Automated count ID Date Data Source [id number] 11/13/2019 04:58:00 AM EDT [facility] Name Value Range Interpretation Description Data Sup porting Code Source(s) Document(s ) Eosinophils 0.36 [place] [#/volume] in 10*3/uL Hospital Blood by Automated count ID Date Data Source [id number] 11/13/2019 04:58:00 AM EDT [facility] Name Value Range Interpretation Description Data Sup porting Code Source(s) Document(s ) Monocytes 0.68 [place] [#/volume] in 10*3/uL Hospital Blood by Automated count ID Date Data Source [id number] 11/13/2019 04:58:00 AM EDT [facility] Value Range Interpretation Description Data Sup porting Code Source(s) Document(s ) Lymphocytes 2.79 [place] [#/volume] in 10*3/uL Hospital Blood by Automated count ID Date Data Source [id number] 11/13/2019 04:58:00 AM EDT [facility] Value Range Interpretation Description Data Sup porting Code Source(s) Document(s ) Neutrophils 4.49 [place] [#/volume] in 10*3/uL Hospital Blood by Automated count ID Date Data Source [id number] 11/13/2019 04:58:00 AM EDT [facility] Value Range Interpretation Description Data Sup porting Code Source(s) Document(s ) Nucleated 0.0 % [place] erythrocytes/10 Hospital 0 leukocytes [Ratio] in Blood by Automated count ID Date Data Source [id number] 11/13/2019 04:58:00 AM EDT [facility] Value Range Interpretation Description Data Sup porting Code Source(s) Document(s ) Immature 0.1 % [place] granulocytes/10 Hospital 0 leukocytes in Blood by Automated count ID Date Data Source [id number] 11/13/2019 04:58:00 AM EDT [facility] Value Range Interpretation Description Data Sup porting Code Source(s) Document(s ) Basophils/100 0.5 % [place] leukocytes in Hospital Blood by Automated count ID Date Data Source [id number] 11/13/2019 04:58:00 AM EDT [facility] Name Value Range Interpretation Description Data Sup porting Code Source(s) Document(s ) Eosinophils/100 4.3 % [place] leukocytes in Hospital Blood by Automated count ID Date Data Source [id number] 11/13/2019 04:58:00 AM EDT [facility] Name Value Range Interpretation Description Data Sup porting Code Source(s) Document(s ) Monocytes/100 8.1 % [place] leukocytes in Hospital Blood by Automated count ID Date Data Source [id number] 11/13/2019 04:58:00 AM EDT [facility] Name Value Range Interpretation Description Data Sup porting Code Source(s) Document(s ) Lymphocytes/10 33.3 % [place] 0 leukocytes Hospital in Blood by Automated count ID Date Data Source [id number] 11/13/2019 04:58:00 AM EDT [facility] Name Value Range Interpretation Description Data Sup porting Code Source(s) Document(s ) Neutrophils/10 53.7 % [place] 0 leukocytes Hospital in Blood by Automated count ID Date Data Source [id number] 11/13/2019 04:58:00 AM EDT [facility] Name Value Range Interpretation Description Data Sup porting Code Source(s) Document(s ) Platelet mean 11.6 fL [place] volume Hospital [Entitic volume] in Blood by Automated count ID Date Data Source [id number] 11/13/2019 04:58:00 AM EDT [facility] Name Value Range Interpretation Description Data Sup porting Code Source(s) Document(s ) Platelets 234 [place] [#/volume] in 10*3/uL Hospital Blood by Automated count ID Date Data Source [id number] 11/13/2019 04:58:00 AM [facility] Value Range Interpretation Description Data Sup porting Code Source(s) Document(s ) Erythrocyte 12.0 % [facility] Hospital width [Ratio] by Automated count ID Date Data Source [id number] 11/13/2019 04:58:00 AM [facility] Value Range Interpretation Description Data Sup porting Code Source(s) Document(s ) Erythrocyte mean 33.8 [place] corpuscular g/dL Hospital hemoglobin concentration [Mass/volume] by Automated count ID Date Data Source [id number] 11/13/2019 04:58:00 AM [facility] Value Range Interpretation Description Data Sup porting Code Source(s) Document(s ) Erythrocyte 30.3 pg [facility] corpuscular hemoglobin [Entitic mass] by Automated count ID Date Data Source [id number] 11/13/2019 04:58:00 AM [facility] Value Range Interpretation Description Data Sup porting Code Source(s) Document(s ) Erythrocyte 89.9 fL [facility] corpuscular volume [Entitic volume] by Automated count ID Date Data Source [id number] 11/13/2019 04:58:00 AM [facility] Value Range Interpretation Description Data Sup porting Code Source(s) Document(s ) Hematocrit 39.1 % [place] [Volume Hospital Fraction] of Blood by Automated count ID Date Data Source [id number] 11/13/2019 04:58:00 AM [facility] Value Range Interpretation Description Data Sup porting Code Source(s) Document(s ) Hemoglobin 13.2 g/dL [place] [Mass/volume] Hospital in Blood ID Date Data Source [id number] 11/13/2019 04:58:00 AM EDT [place] [facility] Name Value Range Interpretation Description Data Sup porting Code Source(s) Document(s ) Erythrocytes 4.35 [place] [#/volume] in 10*6/uL Hospital Blood by Automated count ID Date Data Source [id number] 11/13/2019 04:58:00 AM EDT [facility] Name Value Range Interpretation Description Data Sup porting Code Source(s) Document(s ) Leukocytes 8.4 [place] [#/volume] in 10*3/uL Hospital Blood by Automated count ID Date Data Source [id number] 11/13/2019 04:58:00 AM EDT [facility] Name Value Range Interpretation Description Data Sup porting Code Source(s) Document(s ) Aspartate 19 U/L [place] aminotransferase [place] [Enzymatic Hospital activity/volume] in Serum or Plasma ID Date Data Source [id number] 11/13/2019 04:58:00 AM EDT [facility] Name Value Range Interpretation Description Data Sup porting Code Source(s) Document(s ) Alanine 19 U/L [place] aminotransferase [place] [Enzymatic Hospital activity/volume] in Serum or Plasma ID Date Data Source [id number] 11/13/2019 04:58:00 AM EDT [facility] Value Range Interpretation Description Data Sup porting Code Source(s) Document(s ) Alkaline 79 U/L [place] phosphatase Hospital [Enzymatic activity/volume ] in Serum or Plasma ID Date Data Source [id number] 11/13/2019 [facility] Interpretation Description Data Sup porting Code Source(s) Document(s ) Bilirubin.t 0.3 mg/dL [facility] [Mass/volum e] in Serum or Plasma ID Date Data Source [id number] 11/13/2019 04:58:00 AM EDT [place] [facility] Name Value Range Interpretation Code Description Data Gabby rce(s) Supporting Document(s ) Albumin/Glob 2.1 [place] ulin [Mass Hospital Ratio] in Serum or Plasma ID Date Data Source [id number] 11/13/2019 04:58:00 AM EDT [place] [facility] Name Value Range Interpretation Description Data Sup porting Code Source(s) Document(s ) Albumin 4.6 g/dL [place] [Mass/volume Hospital ] in Serum or Plasma ID Date Data Source [id number] 11/13/2019 04:58:00 AM EDT [facility] [facility] Name Value Range Interpretation Description Data Sup porting Code Source(s) Document(s ) Protein 6.8 g/dL [place] [Mass/volume Hospital ] in Serum or Plasma ID Date Data Source [id number] 11/13/2019 04:58:00 AM EDT [facility] Name Value Range Interpretation Description Data Sup porting Code Source(s) Document(s ) Calcium 9.3 mg/dL [place] [Mass/volume Hospital ] in Serum or Plasma ID Date Data Source [id number] 11/13/2019 04:58:00 AM EDT [facility] Name Value Range Interpretation Code Description Data Gabby rce(s) Supporting Document(s ) Urea 21.4 [place] nitrogen/Cre Hospital atinine [Mass Ratio] in Serum or Plasma ID Date Data Source [id number] 11/13/2019 04:58:00 AM EDT [place] [facility] Name Value Range Interpretation Description Data Sup porting Code Source(s) Document(s ) Creatinine 0.7 mg/dL [place] [Mass/volume] Hospital in Serum or Plasma ID Date Data Source [id number] 11/13/2019 04:58:00 AM EDT [place] [facility] Name Value Range Interpretation Description Data Sup porting Code Source(s) Document(s ) Urea 15 mg/dL [place] nitrogen Hospital [Mass/volume ] in Serum or Plasma ID Date Data Source [id number] 11/13/2019 04:58:00 AM EDT [facility] Name Value Range Interpretation Code Description Data Gabby rce(s) Supporting Document(s ) Anion gap in 9 [place] Serum or [facility] Plasma ID Date Data Source [id number] 11/13/2019 04:58:00 AM EDT [facility] Name Value Range Interpretation Description Data Sup porting Code Source(s) Document(s ) Carbon 29 mmol/L [place] dioxide, Hospital total [Moles/volu me] in Serum or Plasma ID Date Data Source [id number] 11/13/2019 04:58:00 AM EDT [facility] Name Value Range Interpretation Description Data Sup porting Code Source(s) Document(s ) Chloride 103 [place] [Moles/volum mmol/L Hospital e] in Serum or Plasma ID Date Data Source [id number] 11/13/2019 04:58:00 AM EDT [facility] Value Range Interpretation Description Data Sup porting Code Source(s) Document(s ) Potassium 4.3 [place] [Moles/volume mmol/L Hospital ] in Serum or Plasma ID Date Data Source [id number] 11/13/2019 04:58:00 AM EDT [facility] Name Value Range Interpretation Description Data Sup porting Code Source(s) Document(s ) Sodium 137 mmol/L [place] [Moles/volu Hospital me] in Serum or Plasma ID Date Data Source [id number] 11/13/2019 04:58:00 AM EDT [facility] Name Value Range Interpretation Description Data Sup porting Code Source(s) Document(s ) Glucose 92 mg/dL [place] [Mass/volume Hospital ] in Serum or Plasma ID Date Data Source [id number] 11/13/2019 04:58:00 AM EDT [facility] Name Value Range Interpretation Description Data Sup porting Code Source(s) Document(s ) Epithelial 1+ [place] cells.squamous Hospital [#/area] in Urine sediment by Microscopy high power field ID Date Data Source [id number] 11/13/2019 04:58:00 AM EDT [facility] Name Value Range Interpretation Description Data Sup porting Code Source(s) Document(s ) Bacteria OCCASIONAL [place] [#/area] in Hospital Urine sediment by Microscopy high power field ID Date Data Source [id number] 11/13/2019 04:58:00 AM EDT [facility] Name Value Range Interpretation Description Data Sup porting Code Source(s) Document(s ) Erythrocytes 0-3 [place] [#/area] in /[HPF] Hospital Urine sediment by Microscopy high power field ID Date Data Source [id number] 11/13/2019 04:58:00 AM EDT [facility] Value Range Interpretation Description Data Sup porting Code Source(s) Document(s ) Leukocytes 3-5 [place] [#/area] in /[HPF] Hospital Urine sediment by Microscopy high power field ID Date Data Source [id number] 11/13/2019 04:58:00 AM EDT [facility] Value Range Interpretation Code Description Data Supporting Source(s) Document(s ) Leukocyte TRACE [place] esterase Hospital [Presence] in Urine by Test strip ID Date Data Source [id number] 11/13/2019 04:58:00 AM EDT [facility] Name Value Range Interpretation Description Data Sup porting Code Source(s) Document(s ) URINE NEGATIVE [place] NITRITES Hospital ID Date Data Source [id number] 11/13/2019 04:58:00 AM EDT [facility] Name Value Range Interpretation Description Data Sup porting Code Source(s) Document(s ) Erythrocytes 3+ [place] [#/volume] in Hospital Urine by Test strip ID Date Data Source [id number] 11/13/2019 04:58:00 AM EDT [place] [facility] Name Value Range Interpretation Code Description Data Gabby rce(s) Supporting Document(s ) Bilirubin. NEGATIVE [place] total Hospital [Presence] in Urine by Test strip ID Date Data Source [id number] 11/13/2019 04:58:00 AM EDT [facility] Name Value Range Interpretation Description Data Sup porting Code Source(s) Document(s ) Urobilinogen 0.2 [place] [Units/volume] mg/dL Hospital in Urine by Test strip ID Date Data Source [id number] 11/13/2019 04:58:00 AM EDT [place] [facility] Name Value Range Interpretation Code Description Data Gabby rce(s) Supporting Document(s ) Ketones TRACE [place] [Mass/volume Hospital ] in Urine by Test strip ID Date Data Source [id number] 11/13/2019 04:58:00 AM EDT [facility] [facility] Name Value Range Interpretation Description Data Sup porting Code Source(s) Document(s ) Glucose NEGATIVE [place] [Mass/volume Hospital ] in Urine by Test strip ID Date Data Source [id number] 11/13/2019 04:58:00 AM EDT [facility] Name Value Range Interpretation Code Description Data Gabby rce(s) Supporting Document(s ) Protein 1+ [place] [Presence] Hospital in Urine by Test strip ID Date Data Source [id number] 11/13/2019 04:58:[address] [facility] Name Value Range Interpretation Code Description Data Gabby rce(s) Supporting Document(s ) pH of Urine 5.5 [place] by Test Hospital strip ID Date Data Source [id number] 11/13/2019 04:58:[address] [facility] Name Value Range Interpretation Code Description Data Supporting Source(s) Document(s ) Specific 1.035 [place] gravity of [facility] Urine by Test strip ID Date Data Source [id number] 11/13/2019 04:58:[address] [facility] Name Value Range Interpretation Description Data Sup porting Code Source(s) Document(s ) Clarity in Urine CLOUDY [place] by Refractometry [facility] automated ID Date Data Source [id number] 11/13/2019 04:58:[address] [facility] Name Value Range Interpretation Code Description Data Gabby rce(s) Supporting Document(s ) Color of YELLOW [place] Urine Hospital ID Date Data Source [id number] 11/13/2019 04:58:[address] [facility] THERAPEUTIC RANGES:UNFRACTIONATED HEPARI N THERAPY: 60-90 SECONDSARGATROBAN THERAPY: 49-99 SECONDS Name Value Range Interpretation Description Data Sup porting Code Source(s) Document(s ) aPTT in 32.3 s [place] Platelet poor [facility] plasma by Coagulation assay ID Date Data Source [id number] 11/13/2019 04:58:[address] [facility] THERAPEUTIC RANGE FOR STANDARD ORALANTIC OAGULANT THERAPY: 2.0-3.0THERAPEUTIC RANGE FOR HIGH DOSE ORALANTICOAGULANT THERAPY (MECHANICAL HEARTVALVE REPLACEMENT): 2.5-3.5 Name Value Range Interpretation Description Data Sup porting Code Source(s) Document(s ) INR in Platelet 0.9 [place] poor plasma by [facility] Coagulation assay ID Date Data Source [id number] 11/13/2019 04:58:00 AM EDT [facility] Name Value Range Interpretation Description Data Sup porting Code Source(s) Document(s ) PT panel - 10.9 s [place] Platelet poor [facility] plasma by Coagulation assay ID Date Data Source [id number] 11/13/2019 04:58:00 AM EDT [facility] Value Range Interpretation Code Description Data Supporting Source(s) Document(s ) NUCLEATED RBCS 0.0 % [place] (AUTO Hospital DIFF%)DIS ID Date Data Source [id number] 11/13/2019 04:58:00 AM EDT [facility] Value Range Interpretation Description Data Sup porting Code Source(s) Document(s ) Differential AUTOMATED [place] cell count Hospital method - Blood ID Date Data Source [id number] 11/13/2019 04:58:00 AM EDT [facility] Value Range Interpretation Description Data Sup porting Code Source(s) Document(s ) Immature 0.01 [place] granulocytes 10*3/uL Hospital [#/volume] in Blood by Automated count ID Date Data Source [id number] 11/13/2019 04:58:00 AM EDT [facility] Value Range Interpretation Description Data Sup porting Code Source(s) Document(s ) Basophils 0.04 [place] [#/volume] in 10*3/uL Hospital Blood by Automated count ID Date Data Source [id number] 11/13/2019 04:58:00 AM EDT [facility] Name Value Range Interpretation Description Data Sup porting Code Source(s) Document(s ) Eosinophils 0.36 [place] [#/volume] in 10*3/uL Hospital Blood by Automated count ID Date Data Source [id number] 11/13/2019 04:58:00 AM EDT [facility] Name Value Range Interpretation Description Data Sup porting Code Source(s) Document(s ) Monocytes 0.68 [place] [#/volume] in 10*3/uL Hospital Blood by Automated count ID Date Data Source [id number] 11/13/2019 04:58:00 AM EDT [facility] Value Range Interpretation Description Data Sup porting Code Source(s) Document(s ) Lymphocytes 2.79 [place] [#/volume] in 10*3/uL Hospital Blood by Automated count ID Date Data Source [id number] 11/13/2019 04:58:00 AM EDT [facility] Value Range Interpretation Description Data Sup porting Code Source(s) Document(s ) Neutrophils 4.49 [place] [#/volume] in 10*3/uL [facility] Blood by Automated count ID Date Data Source [id number] 11/13/2019 04:58:00 AM EDT [facility] Value Range Interpretation Description Data Sup porting Code Source(s) Document(s ) Nucleated 0.0 % [place] erythrocytes/10 Hospital 0 leukocytes [Ratio] in Blood by Automated count ID Date Data Source [id number] 11/13/2019 04:58:00 AM EDT [facility] Value Range Interpretation Description Data Sup porting Code Source(s) Document(s ) Immature 0.1 % [place] granulocytes/10 Hospital 0 leukocytes in Blood by Automated count ID Date Data Source [id number] 11/13/2019 04:58:00 AM EDT [facility] Value Range Interpretation Description Data Sup porting Code Source(s) Document(s ) Basophils/100 0.5 % [place] leukocytes in Hospital Blood by Automated count ID Date Data Source [id number] 11/13/2019 04:58:00 AM EDT [facility] Value Range Interpretation Description Data Sup porting Code Source(s) Document(s ) Eosinophils/100 4.3 % [place] leukocytes in Hospital Blood by Automated count ID Date Data Source [id number] 11/13/2019 04:58:00 AM EDT [facility] Name Value Range Interpretation Description Data Sup porting Code Source(s) Document(s ) Monocytes/100 8.1 % [place] leukocytes in Hospital Blood by Automated count ID Date Data Source [id number] 11/13/2019 04:58:00 AM EDT [facility] Name Value Range Interpretation Description Data Sup porting Code Source(s) Document(s ) Lymphocytes/10 33.3 % [place] 0 leukocytes Hospital in Blood by Automated count ID Date Data Source [id number] 11/13/2019 04:58:00 AM EDT [facility] Name Value Range Interpretation Description Data Sup porting Code Source(s) Document(s ) Neutrophils/10 53.7 % [place] 0 leukocytes Hospital in Blood by Automated count ID Date Data Source [id number] 11/13/2019 04:58:00 AM EDT [facility] Name Value Range Interpretation Description Data Sup porting Code Source(s) Document(s ) Platelet mean 11.6 fL [place] volume Hospital [Entitic volume] in Blood by Automated count ID Date Data Source [id number] 11/13/2019 04:58:00 AM EDT [facility] Name Value Range Interpretation Description Data Sup porting Code Source(s) Document(s ) Platelets 234 [place] [#/volume] in 10*3/uL Hospital Blood by Automated count ID Date Data Source [id number] 11/13/2019 04:58:00 AM EDT [facility] Value Range Interpretation Description Data Sup porting Code Source(s) Document(s ) Erythrocyte 12.0 % [place] distribution Hospital width [Ratio] by Automated count ID Date Data Source [id number] 11/13/2019 04:58:00 AM EDT [facility] Value Range Interpretation Description Data Sup porting Code Source(s) Document(s ) Erythrocyte mean 33.8 [place] corpuscular g/dL Hospital hemoglobin concentration [Mass/volume] by Automated count ID Date Data Source [id number] 11/13/2019 04:58:00 AM EDT [facility] Value Range Interpretation Description Data Sup porting Code Source(s) Document(s ) Erythrocyte 30.3 pg [facility] corpuscular hemoglobin [Entitic mass] by Automated count ID Date Data Source [id number] 11/13/2019 04:58:00 AM EDT [facility] Value Range Interpretation Description Data Sup porting Code Source(s) Document(s ) Erythrocyte 89.9 fL [facility] corpuscular volume [Entitic volume] by Automated count ID Date Data Source [id number] 11/13/2019 04:58:00 AM [facility] Value Range Interpretation Description Data Sup porting Code Source(s) Document(s ) Hematocrit 39.1 % [place] [Volume Hospital Fraction] of Blood by Automated count ID Date Data Source [id number] 11/13/2019 04:58:00 AM EDT [facility] Value Range Interpretation Description Data Sup porting Code Source(s) Document(s ) Hemoglobin 13.2 g/dL [place] [Mass/volume] Hospital in Blood ID Date Data Source [id number] 11/13/2019 04:58:00 AM EDT [facility] Value Range Interpretation Description Data Sup porting Code Source(s) Document(s ) Erythrocytes 4.35 [place] [#/volume] in 10*6/uL Hospital Blood by Automated count ID Date Data Source [id number] 11/13/2019 04:58:[address] [facility] Name Value Range Interpretation Description Data Sup porting Code Source(s) Document(s ) Leukocytes 8.4 [place] [#/volume] in 10*3/uL Hospital Blood by Automated count ID Date Data Source [id number] 10/28/2019 03:54:[address] [facility] REFERENCE RANGES:NON- 0-5 MIU/ML.GESTATIONAL AGE BHCG QUANT LEVEL (MIU/ML) 0.2-1 WEE K 5-50 1-2 WEEKS 50-500 2-3 WEEKS 100-5000 3-4 WEEKS [phone] 4-5 WEEKS 1000-90258 5-6 WEEKS [phone] 6-8 WEEKS [id number] 2-3 MONTHS [id number] CANNOT BE INTERPRETED A TUMOR MARKER IN FEMALES.TEST PERFORMED BY [facility] [facility] CHEMILUMINESCENCE METHOD. Name Value Range Interpretation Description Data Sup porting Code Source(s) Document(s ) TOTAL HCG, < 5.0 [place] QUANTITATIVE m[IU]/mL Hospital ID Date Data Source [id number] 10/28/2019 03:54:[address] [facility] Name Value Range Interpretation Description Data Sup porting Code Source(s) Document(s ) Dehydroepiandrosterone 140 [place] sulfate (DHEA-S) ug/dL [place] [Mass/volume] in Serum Hospita l or Plasma ID Date Data Source [id number] 10/28/2019 03:54:[address] [facility] REFERENCE RENGE (FEMALE)GROUP AGE REFERENCE RANGE PREMENOPAUSE 21 - 60 9 - 48 NG/DLPOSTMENOPAUSE 45 - 89 0 - 46 NG/DLPLEASE NOTE: NEW REFERENCE RANGE EFFECTIVE 7-20=17 Name Value Range Interpretation Description Data Sup porting Code Source(s) Document(s ) Testosterone 26 ng/dL [place] [Mass/volume] in Hospital Serum or Plasma ID Date Data Source [id number] 10/28/2019 03:54:00 PM EDT [facility] Name Value Range Interpretation Description Data Sup porting Code Source(s) Document(s ) Prolactin 7.8 ng/mL [place] [Mass/volume] Hospital in Serum or Plasma ID Date Data Source [id number] 10/28/2019 03:54:00 PM EDT [facility] ADULT FEMALE REFERENCE RANGE:FOLLICULAR PHASE 2.8-11.3 MIU/MLFOLLICULAR, DAYS 2-3 3.0-14.4 MIU/MLMIDCYCLE 5.8-21.0 MIU/MLLUTEAL PHASE 1.2- 9.0 MIU/MLPOST MENOPAUSAL 21. 7-153.0 MIU/MLPOSTMENOPAUSAL, ERT 9.7-111.0 MIU/MLORAL CONTRACEPTIVES 0- 4.9 MIU/ML Name Value Range Interpretation Description Data Sup porting Code Source(s) Document(s ) Follitropin 2.7 [place] [Units/volume] m[IU]/mL Hospital in Serum or Plasma ID Date Data Source [id number] 10/28/2019 03:54:[address] [facility] ADULT FEMALES REFERENCE RANGE: FOLLICUL AR PHASE 1.1 - 11.6 MIU/ML. MID-CYCLE 17.0 - 77 .0 MIU/ML. LUTEAL PHASE 0.0 - 14.7 MIU/ML. PERIMENSTRUAL +/- 8 DAYS 0.0 - 12.0 MIU/ML. POSTMENOPAUSAL 11.3 - 39 .8 MIU/ML. ORAL CONTRACEPTIVES 0.0 - 8.0 MIU/ML. Name Value Range Interpretation Description Data Sup porting Code Source(s) Document(s ) Lutropin 3.7 [place] [Units/volum m[IU]/mL Hospital e] in Serum or Plasma ID Date Data Source [id number] 10/28/2019 03:54:[address] [facility] Name Value Range Interpretation Description Data Sup porting Code Source(s) Document(s ) Thyrotropin 0.784 [place] [Units/volume] u[IU]/mL Hospital in Serum or Plasma by Detection limit <= 0.005 mIU/L ID Date Data Source [id number] 10/28/2019 03:54:[address] [facility] CA125 IS NOT TO BE USED A DIAGNOSTIC TOOL WITHOUT CLINICAL EVALUATION.THE ASSAY SHOULD NOT BE USED A SCREENING TEST F OR MALIGNANCY.VALUES OBTAINED WITH DIFFERENT ASSAY METHODS OR DORMITORY KEEPER KITS CANNO T BE USED INTERCHANGEABLY.TEST PERFORMED BY [facility] [facility] CHEMILUMINESCENCE METHOD. Name Value Range Interpretation Code Description Data Supporting Source(s) Document(s ) Cancer Ag 8.3 U/mL [address] [Units/volu me] in Serum or Plasma ID Date Data Source [id number] 10/28/2019 03:54:[address] [facility] Name Value Range Interpretation Description Data Sup porting Code Source(s) Document(s ) Erythrocyte 13 mm/h [facility] rate by Westergren method ID Date Data Source [id number] 10/28/2019 03:54:[address] [facility] REFERENCE RANGES:NON- 0-5 MIU/ML.GESTATIONAL AGE BHCG QUANT LEVEL (MIU/ML) 0.2-1 WEE K 5-50 1-2 WEEKS 50-500 2-3 WEEKS 100-5000 3-4 WEEKS [phone] 4-5 WEEKS 1000-64784 5-6 WEEKS 94840-333952 6-8 WEEKS [phone] 2-3 MONTHS [id number] CANNOT BE INTERPRETED A TUMOR MARKER IN FEMALES.TEST PERFORMED BY [facility] [facility] CHEMILUMINESCENCE METHOD. Name Value Range Interpretation Description Data Sup porting Code Source(s) Document(s ) TOTAL HCG, < 5.0 [place] QUANTITATIVE m[IU]/mL Hospital ID Date Data Source [id number] 10/[facility]2019 [facility] Interpretation Description Data Sup porting Code Source(s) Document(s ) Dehydroepiandrosterone 140 [place] sulfate (DHEA-S) ug/dL [place] [Mass/volume] in Serum Hospita l or Plasma ID Date Data Source [id number] 10/28/2019 03:54:[address] [facility] REFERENCE RENGE (FEMALE)GROUP AGE REFERENCE RANGE PREMENOPAUSE 21 - 60 9 - 48 NG/DLPOSTMENOPAUSE 45 - 89 0 - 46 NG/DLPLEASE NOTE: NEW REFERENCE RANGE EFFECTIVE 7-20=17 Name Value Range Interpretation Description Data Sup porting Code Source(s) Document(s ) Testosterone 26 ng/dL [place] [Mass/volume] in Hospital Serum or Plasma ID Date Data Source [id number] 10/28/2019 03:54:[address] [facility] Name Value Range Interpretation Description Data Sup porting Code Source(s) Document(s ) Prolactin 7.8 ng/mL [place] [Mass/volume] Hospital in Serum or Plasma ID Date Data Source [id number] 10/28/2019 03:54:[address] [facility] ADULT FEMALE REFERENCE RANGE:FOLLICULAR PHASE 2.8-11.3 MIU/MLFOLLICULAR, DAYS 2-3 3.0-14.4 MIU/MLMIDCYCLE 5.8-21.0 MIU/MLLUTEAL PHASE 1.2- 9.0 MIU/MLPOST MENOPAUSAL 21. 7-153.0 MIU/MLPOSTMENOPAUSAL, ERT 9.7-111.0 MIU/MLORAL CONTRACEPTIVES 0- 4.9 MIU/ML Name Value Range Interpretation Description Data Sup porting Code Source(s) Document(s ) Follitropin 2.7 [place] [Units/volume] m[IU]/mL Hospital in Serum or Plasma ID Date Data Source [id number] 10/28/2019 03:54:[address] [facility] ADULT FEMALES REFERENCE RANGE: FOLLICUL AR PHASE 1.1 - 11.6 MIU/ML. MID-CYCLE 17.0 - 77 .0 MIU/ML. LUTEAL PHASE 0.0 - 14.7 MIU/ML. PERIMENSTRUAL +/- 8 DAYS 0.0 - 12.0 MIU/ML. POSTMENOPAUSAL 11.3 - 39 .8 MIU/ML. ORAL CONTRACEPTIVES 0.0 - 8.0 MIU/ML. Name Value Range Interpretation Description Data Sup porting Code Source(s) Document(s ) Lutropin 3.7 [place] [Units/volum m[IU]/mL Hospital e] in Serum or Plasma ID Date Data Source [id number] 10/28/2019 03:54:[address] [facility] Name Value Range Interpretation Description Data Sup porting Code Source(s) Document(s ) Thyrotropin 0.784 [place] [Units/volume] u[IU]/mL Hospital in Serum or Plasma by Detection limit <= 0.005 mIU/L ID Date Data Source [id number] 10/28/2019 03:54:[address] [facility] CA125 IS NOT TO BE USED A DIAGNOSTIC TOOL WITHOUT CLINICAL EVALUATION.THE ASSAY SHOULD NOT BE USED A SCREENING TEST F OR MALIGNANCY.VALUES OBTAINED WITH DIFFERENT ASSAY METHODS OR DORMITORY KEEPER KITS CANNO T BE USED INTERCHANGEABLY.TEST PERFORMED BY [employer] CHEMILUM[employer]CENCE METHOD. Name Value Range Interpretation Code Description Data Supporting Source(s) Document(s ) Cancer Ag 8.3 U/mL [place] [facility] [Units/volu me] in Serum or Plasma ID Date Data Source [id number] 10/28/2019 03:54:[address] [facility] Name Value Range Interpretation Description Data Sup porting Code Source(s) Document(s ) Erythrocyte 13 mm/h [place] sedimentation Hospital rate by Westergren method ID Date Data Source [id number] 10/15/2019 02:06:[address] [facility] Adult Female Reference Ranges for Estron e: Follicular Phase: 10-138 pg/mL Luteal Phase: 16-173 pg/mL Po stmenopausal Phase: < or = 65 pg/mLPediatric Female Reference Ranges for Estrone: Pr e-pubertal (1-9 years): < or = 34 pg/mL 10-11 years: < or = 72 pg/m L 12-14 years: < or = 75 pg/mL 15-17 years: < or = 188 pg/mLThis test w as developed and its analytical performancecharacteristics have been det ermined by [employer] [facility]. It has not beenclea red or approved by FDA. This assay has been validatedpursuant to the CLIA regulation s and is used for clinicalpurposes. Name Value Range Interpretation Code Description Data Gabby rce(s) Supporting Document(s ) ESTRONE,S 14 pg/mL [facility] ID Date Data Source [id number] 10/15/2019 02:06:[address] [facility] Adult Female Reference Ranges for Estrad iol, Ultrasensitive: Follicular Phase: 39-375 pg/mL Luteal Phase: 48- 440 pg/mL Postmenopausal Phase: < or = 10 pg/mLPediatric Female Reference Ranges f or Estradiol, Ultrasensitive: Pre-pubertal (1-9 years): < or = 16 pg/mL 10-1 1 years: < or = 65 pg/mL 12-14 years: < or = 142 pg/mL 15-17 years: < or = 283 pg/mLThis test was developed and its analytical performancecharacteristic s have been determined by [employer] [facility] Shantanu haley. It has not beencleared or approved by FDA. This assay has been validatedpur suant to the CLIA regulations and is used for clinicalpurposes. --- 10/20/19 0014 --- ESTRADIOL1 previously reported as: 9 pg/mLAdult Female Reference Ranges for E stradiol, Ultrasensitive: Follicular Phase: 39-375 pg/mL Luteal Phase: 48-440 pg/mL Postmenopausal Phase: < or = 10 pg/mLPediatric Female Reference Range s for Estradiol, Ultrasensitive: Pre-pubertal (1-9 years): < or = 16 pg/mL 10-11 years: < or = 65 pg/mL 12-14 years: < or = 142 pg/mL 15- 17 years: < or = 283 pg/mLThis test was developed and its analytical performance characteristics have been determined by [facility]. It has not beencleared or approved by FDA. This assay has been validatedpur suant to the CLIA regulations and is used for clinicalpurposes. --- 10/19/19 2307 --- ESTRADIOL1 previously reported as: 9 pg/mLAdult Female Reference Ranges for E stradiol, Ultrasensitive: Follicular Phase: 39-375 pg/mL Luteal Phase: 48-440 pg/mL Postmenopausal Phase: < or = 10 pg/mLPediatric Female Reference Range s for Estradiol, Ultrasensitive: Pre-pubertal (1-9 years): < or = 16 pg/mL 10-11 years: < or = 65 pg/mL 12-14 years: < or = 142 pg/mL 15- 17 years: < or = 283 pg/mLThis test was developed and its analytical performance characteristics have been determined by [facility]. It has not beencleared or approved by FDA. This assay has been validatedpur suant to the CLIA regulations and is used for clinicalpurposes. Test performed by: [employer] [place] [address] Bead Preparer: Karely Jones MD Name Value Range Interpretation Code Description Data Gabby rce(s) Supporting Document(s ) ESTRADIOL1 9 pg/mL [facility] ID Date Data Source [id number] 10/15/2019 02:06:00 PM EDT [facility] Adult Reference Ranges for Estriol: Dilip lt Males: < or = 0.18 ng/mL Adult Females (non): < or = 0.2 1 ng/mL : First Trimester: < or = 2.50 ng/mL Second Trimest er: < or = 9.60 ng/mL Third Trimester: < or = 14.60 ng/mL This test was developed and its analytical performancecharacteristics have been det ermined by [facility]. It has not beenclea red or approved by FDA. This assay has been validatedpursuant to the CLIA regulation s and is used for clinicalpurposes. Test performed by: [employer] [facility] [id number] [place], [place] [id number] Bead Preparer : Karely Jones MD Name Value Range Interpretation Code Description Data Gabby rce(s) Supporting Document(s ) ESTRIOL1 <0.40 [place] ng/mL Hospital ID Date Data Source [id number] 10/15/2019 02:06:00 PM EDT [facility] ADULT FEMALES REFERENCE RANGE: FOLLICUL AR PHASE 0.0 - 1.1 NG/ML. MID-FOLLICULAR, DAYS 5-11 0.0 - 1.0 NG/ML. MID-CYCLE 0.5 - 1.7 NG/ML. LUTEAL PHASE 1.0 - 21.0 NG/ML. MID-LUTEAL, DAYS 7-8 6.0 - 24.0 NG/ML. POSTMENOPAUSAL 0.0 - 1.0 NG/ML. ORAL CONTRACEPTIVES 0.3 - 0.9 NG/ML. 1ST TRIMESTER 9.3 - 33.2 NG/ML. 2ND TRIMESTER 29.5 - 50.0 NG/ML . 3RD TRIMESTER 83.1 - 160.0 NG/ML. Name Value Range Interpretation Description Data Sup porting Code Source(s) Document(s ) Progesterone 0.2 [place] [Mass/volume] in ng/mL Hospital Serum or Plasma ID Date Data Source [id number] 09/02/2019 12:00:00 AM EDT [facility] Name Value Range Interpretation Code Description Data Gabby rce(s) Supporting Document(s ) 2019-nCoV [facility] RNA XXX BETTE+probe- Imp This lab was ordered by [facility] and reported by [employer] ID Date Data Source [id number] 08/14/2019 12:00:00 AM EDT [facility] Name Value Range Interpretation Code Description Data Gabby rce(s) Supporting Document(s ) 2019-nCoV [facility] RNA XXX BETTE+probe- Imp This lab was ordered by [facility] and reported by [employer]. Procedure Social History Code Duration Value Status Description Data Source(s ) Smoking Unknown if ever completed Unknown if ever [facility] [place] smoked smoked Hospital Smoking Unknown if ever completed Unknown if ever [facility] [place] smoked smoked Hospital Smoking Unknown if ever completed Unknown if ever [facility] [place] smoked smoked Hospital Smoking Unknown if ever completed Unknown if ever [facility] [place] smoked smoked Hospital Smoking Unknown if ever completed Unknown if ever [facility] [place] smoked smoked Hospital Smoking Unknown if ever completed Unknown if ever [facility] [place] smoked smoked Hospital Smoking Unknown if ever completed Unknown if ever [facility] [place] smoked smoked Hospital Smoking Unknown if ever completed Unknown if ever [facility] [place] smoked smoked Hospital Smoking Unknown if ever completed Unknown if ever [facility] [place] smoked smoked Hospital Vital Signs ID Date Data Source UNK Name Value Range Interpretation Code Description Data Source(s) Body mass index 21.0 kg/m2 21.0 kg/m2 [place] ins (BMI) [Ratio] Hospital Body weight 136.29 136.29 [lb_av] [facility] ins [lb_av] [facility] Diastolic blood 70 mm[Hg] 70 mm[Hg] [facility] pressure Hospital Systolic blood 105 mm[Hg] 105 mm[Hg] [facility] pressure Hospital Respiratory rate 18 /min 18 /min [facility] Heart rate 78 /min 78 /min [facility] Body temperature 37.47867 37.73946 [facility] Body temperature 98.9 [degF] 98.9 [degF] [facility] Diastolic blood 68 mm[Hg] 68 mm[Hg] [facility] pressure Hospital Systolic blood 105 mm[Hg] 105 mm[Hg] [facility] pressure Hospital Respiratory rate 18 /min 18 /min [facility] Heart rate 56 /min 56 /min [facility] Body temperature 36.22900 36.45781 [facility] Body temperature 98.1 [degF] 98.1 [degF] [facility] Body mass index 22.0 kg/m2 22.0 kg/m2 [place] ins (BMI) [Ratio] Hospital Body weight 137.28 137.28 [lb_av] [place] ins [lb_av] Hospital
[2020-02-08] MEDS ORDERED: CYCLOBENZAPRINE HCL 10 MG TABLET (FP) PO ONE (12:57)
[2020-02-08] MEDS ORDERED: KETOROLAC TROMETHAMINE 60 MG/2 ML VIAL IM ONE (12:58)
--- NOTE | 2020-02-08 12:58 | PDOC ---
History of Present Illness - General Chief Complaint: Pain, Acute Stated Complaint: LOW BACK PAIN Time Seen by Provider: 02/08/20 11:51 History Source: Patient Exam Limitations: No Limitations - History of Present Illness Initial Comments: 02/08/20 12:59 24y f no signficant pmhx presents with atraumatic back pain. Patient developed Usual onset of back pain approximately 6 days ago after doing some heavy lifting at work. States that the pain is in the bilateral lower back was very mild initially however has been gradually getting worse. Denies any Deviation of the pain but notes that the pain is worse especially when she is bending over, feels improved when she is flat. She denies any fever, chills, urinary bowel incontinence. No prior history of back pain. LMP Last week. Social history: Denies IV drug use. ROS: Constitutional - no reported Fever, Chills, Abd/GI: no reported abd pain, nausea, vomiting, : no reported dysuria, frequency, discharge Musculskelatal - + back pain, no reported joint swelling skin - no reported bruising, erythema, rash neurological: no reported headache, numbness, focal weakness, tingling, ataxia, hematologic: no reported easy bruising, easy bleeding Exam: GENERAL: The patient is awake, alert, and fully oriented, Nontoxic - in no acute distress. LUNGS: Breath sounds equal, clear to auscultation bilaterally. No wheezes, no rhonchi, no rales. HEART: Regular rate and rhythm, normal S1 and S2 without murmur, rub or gallop. ABDOMEN: Soft, nontender, No guarding, no rebound. No CVA tenderness EXTREMITIES: Normal range of motion, no edema. BACK: Mild b/l paralumbar tnderness, nofocal midline bony tenderness on cervica/thoracic/lumbar spine NEUROLOGICAL: No facial assymetry, Normal speech, PSYCH: Normal mood, normal affect. SKIN: Warm, Dry, normal turgor, Suspect back strain we will treat with Toradol and Flexeril Past History - Medical History Allergies/Adverse Reactions: Allergies Allergy/AdvReac Type Severity Reaction Status Date / Time No Known Allergies Allergy Verified 02/08/20 11:46 Home Medications: Ambulatory Orders Cyclobenzaprine HCl [Flexeril 10 mg] 10 mg PO BID PRN #20 tablet 09/28/20 Dextroamphetamine/Amphetamine [Adderall Xr 20 mg Capsule] 20 mg PO DAILY 02/08/20 Ibuprofen [Motrin -] 400 mg PO QID PRN #28 tablet 02/08/20 Norethindrone AC-Eth Estradiol [Junel] 1 each PO DAILY 02/08/20 COPD: No - Reproductive History Is Patient Now?: No (unkown) - Psycho-Social/Smoking History Smoking History: Never smoked Have you smoked in the past 12 months: No - Substance Abuse Hx (Audit-C & DAST Scrn) How often the patient has a drink containing alcohol: Never Score: In Men: 4 or > Positive; In Women: 3 or > Positive: 0 Screen Result (Pos requires Nsg. Audit-10AR): Negative In the last yr the pt used illegal drug/Rx for NonMed reason: No Score: Yes response is considered Positive: 0 Screen Result (Positive result requires Nsg. DAST-10): Negative *Physical Exam - Vital Signs Last Vital Signs Temp Pulse Resp BP Pulse Ox 99.5 F 67 16 108/67 100 02/08/20 11:46 02/08/20 11:46 02/08/20 11:46 02/08/20 11:46 02/08/20 11:46 Medical Decision Making - Medical Decision Making 02/08/20 13:37 pt evelyn macias ambulatory will dc with outpatint fu return precuations were discussed Discharge - Discharge Information Problems reviewed: Yes Clinical Impression/Diagnosis: Low back strain Qualifiers: Encounter type: initial encounter Qualified Code(s): S39.012A - Strain of muscle, fascia and tendon of lower back, initial encounter Condition: Improved Disposition: HOME - Admission No - Additional Discharge Information Prescriptions: Cyclobenzaprine HCl [Flexeril 10 mg] 10 mg PO BID PRN #20 tablet PRN Reason: Back Pain Ibuprofen [Motrin -] 400 mg PO QID PRN #28 tablet PRN Reason: Pain - Follow up/Referral Referrals: [facility] [place] [Provider Group] - Patient Discharge Instructions Patient Printed Discharge Instructions: DI for Back Strain or Sprain Additional Instructions: Return to the emergency department immediately with ANY new, persistent or w orsening symptoms including numbness, tingling, weakness, fevers or any other concerns. Take ibuprofen (400mg)/tylenol(650mg) every 6 hours for 2 days. Take the flexeril twice daily if you still have pain/discomfort. Caution in using Valium as it may make you sleepy. Do not drive or put yourself in any position where you would be in danger. Apply heat to your sore muscles. You MUST call and follow up with your doctor in 4-5 days for further evaluation of your symptoms. Your emergency department visit is not complete without a followup with your doctor for reevaluation.. Results were discussed with you. Please make sure your doctor reviews the results of your emergency evaluation. - Post Discharge Activity Work/Back to School Note: Back to Work
[2020-02-08] MEDS ORDERED: KETOROLAC TROMETHAMINE 30 MG/1 ML VIAL ONE (12:59)
[2020-02-08] MEDS ORDERED: CYCLOBENZAPRINE HCL 10 MG TABLET (FP) ONE (12:59)
== END 2020-02-08 13:45 | disposition home or self-care (01) ==
LOC: FER 11:45
PROC: 3E0233Z Introduction of Anti-inflammatory into Muscle, Percutaneous Approach (ICD-10-PCS; principal; 2020-02-08)
DX: S39.012A Strain of muscle, fascia and tendon of lower back, initial encounter (principal)
CPT/HCPCS: 96372; 99285-25

== ENCOUNTER 2020-04-23 09:40 | Emergency (ER) | payer OTHER ==
[2020-04-23 09:52] VITALS: BP 112/68; PULSE 85; TEMP 98.8; BMI 22.6
== END 2020-04-23 10:25 | disposition home or self-care (01) ==
LOC: FER 09:40
DX: Z11.59 Encounter for screening for other viral diseases (principal)
CPT/HCPCS: 87880; 99284-25